=== PATIENT | female | born 1940 | race Hispanic/Latino ===

== ENCOUNTER 2018-05-01 06:32 | Day surgery (SDC) | payer MEDICARE ==
[2018-04-27 10:45] VITALS: BMI 34.9
[2018-05-01] MEDS ORDERED: Lidocaine 2% Inj (20ml) ONE (07:10)
[2018-05-01] MEDS ORDERED: Iodixanol 320 MG/ML 100 ML BOTTLE IV ONE (07:11)
[2018-05-01] MEDS ORDERED: Iohexol 350mgl/ml 50 ML ONE (07:11)
[2018-05-01] MEDS ORDERED: Iodixanol 320 MG/ML 200 ML BOTTLE IV ONE (07:11)
[2018-05-01] MEDS ORDERED: Nitroglycerin 50mg in D5W 0 MG/0 ML BOTTLE IV ONE (07:11)
[2018-05-01 07:57] LABS: PARTIAL THROMBOPLASTIN TIME 33.2 Seconds (25.1-36.5); PROTHROMBIN TIME 11.5 SECONDS (9.4-12.5)
[2018-05-01] MEDS ORDERED: Midazolam 2 MG/2 ML VIAL ONE ×2 (08:35→08:42)
[2018-05-01 08:37] LABS: CALCIUM 9.3 mg/dL (8.4-10.5); GFR AFRICAN-AMERICAN > 60; GFR NON-AFRICAN AMERICAN > 60
[2018-05-01 08:40] LABS: BLOOD UREA NITROGEN 20 mg/dL (7-21)
--- NOTE | 2018-05-01 08:41 | CARD ---
APPROVED REPORT EKG Measurement Heart [id number] <Conclusion> Atrial fibrillation Left axis deviation IVCD PRWP Possible septal MD, old Moderate voltage criteria for LVH STTW changes c/w ischemia Prolonged QTc
[2018-05-01] MEDS ORDERED: Digoxin 500 mcg/2ml (0.5 mg/2ml) Inj ONE (08:45)
[2018-05-01] MEDS ORDERED: Sodium Chloride 0.9% 1,000 ML IV SCH (09:15)
[2018-05-01 09:37] VITALS: TEMP 97.9
[2018-05-01 09:55] VITALS: PULSE 120
[2018-05-01 09:57] LABS: BASO # 0.01 K/mm3 (0.0-2.0); BASO % 0.2 % (0.0-3.0); EOS # 0.1 (0.0-0.7); EOS % 1.4 % (1.5-5.0); GRAN # 2.73 (1.4-6.5); HEMOGLOBIN 11.1 g/dL (12.0-16.0); LYMPH # 1.3 (1.2-3.4); LYMPH % 29.8 % (22.0-35.0); MEAN CELL VOLUME 93.7 fl (80.0-105.0); MEAN CORPUSCULAR HEMOGLOBIN 31.9 pg (25.0-35.0); MONO # 0.3 (0.1-0.6); MONO % 6.6 % (1.0-6.0); RBC 3.48 10^6/uL (3.5-6.1); RED CELL DISTRIBUTION WIDTH 14.6 % (11.5-14.5); WHITE BLOOD COUNT 4.4 10^3/ul (4.5-11.0)
[2018-05-01 11:09] VITALS: RESP 20; O2SAT 100
[2018-05-01 14:09] VITALS: BP 117/45; PULSE 62
--- NOTE | 2018-05-10 15:41 | CARDCATH ---
PROCEDURE DATE: 05/01/2018 HISTORY: The patient is a 77-year-old woman with history of chest pain. Her past medical history includes a history of atrial fibrillation as well as diabetes mellitus. The patient underwent stress testing which showed new ischemic changes in the anterolateral and inferolateral wall. The overall ejection fraction was normal. Because of this, cardiac catheterization was recommended. PROCEDURE: Left heart catheterization with coronary arteriography and left ventriculogram. The right femoral artery was cannulated with a 6-Yemeni sheath. There were no complications. I performed moderate sedation which included the presence of an independent trained observer that assisted in monitoring the patient's level of consciousness and physiologic status. After administration of Versed and fentanyl, my intra-service time was 15 minutes. The findings on catheterization revealed a right dominant circulation. The RCA revealed diffuse atherosclerosis without critical lesions. The distal posterolateral branches revealed 50%-60% lesions in a small distal branch. The left main artery was unremarkable. The LAD and diagonal vessels revealed intimal irregularities without critical lesions. The circumflex artery revealed intimal irregularities with a 50%-60% stenoses in the midportion of the circumflex artery just after the takeoff of the first obtuse marginal branch. Left ventriculogram was performed in the DELUNA projection. In the DELUNA projection, wall motion is within normal limits. Estimated ejection fraction of 60%. Angio-Seal was used to close the femoral artery site. The patient tolerated the procedure well. In summary, the procedure revealed normal LV function. A 50%-60% stenosis in the mid circumflex artery. A 60% stenosis in the distal portion of the posterolateral branch of the RCA. Given these findings, the treatment will be continued medical therapy with emphasis on a strict cardiac risk reduction program. David Washburn MD
== END 2018-05-01 15:10 | disposition home or self-care (01) ==
LOC: CATH 06:32
PROVIDERS: ATTEND Internal Medicine Cardiovascular Disease
DX: I25.10 Atherosclerotic heart disease of native coronary artery without angina pectoris (principal); I48.91 Unspecified atrial fibrillation; E11.9 Type 2 diabetes mellitus without complications; E66.9 Obesity, unspecified; I10 Essential (primary) hypertension
CPT/HCPCS: 36415; 80048; 85025; 85610; 85730; 86850; 86900; 93005; 93458; 99152; C1760; C1769; C2629; J1160; J1644; J2250; J3010; J7030; J7040; Q9966; Q9967 ×2

== ENCOUNTER 2018-07-10 17:34 | Inpatient (IN) | payer MEDICARE ==
[2018-07-10 19:23] LABS: BASO # 0.02 K/mm3 (0.0-2.0); BASO % 0.2 % (0.0-3.0); EOS # 0.1 (0.0-0.7); GRAN # 7.5 (1.4-6.5); GRAN % 73.4 % (50.0-68.0); HEMOGLOBIN 11.5 g/dL (12.0-16.0); LYMPH % 19.2 % (22.0-35.0); MEAN CELL VOLUME 96.4 fl (80.0-105.0); MEAN CORPUSCULAR HEMOGLOBIN 31.8 pg (25.0-35.0); MEAN PLATELET VOLUME 9.6 fl (7.0-11.0); MONO # 0.6 (0.1-0.6); MONO % 6.2 % (1.0-6.0); RBC 3.62 10^6/uL (3.5-6.1); RED CELL DISTRIBUTION WIDTH 14.6 % (11.5-14.5); WHITE BLOOD COUNT 10.2 10^3/ul (4.5-11.0)
[2018-07-10 19:33] LABS: ALB/GLOB RATIO 1.5 (1.1-1.8); ALBUMIN 4.1 g/dL (3.0-4.8); ALT/SGPT 17 U/L (7-56); AST/SGOT 21 U/L (14-36); BLOOD UREA NITROGEN 19 mg/dL (7-21); CALCIUM 9.1 mg/dL (8.4-10.5); GFR NON-AFRICAN AMERICAN > 60
[2018-07-10 19:45] LABS: B-TYPE NATRIURETIC PEPTIDE 2140 pg/mL (0-450); TROPONIN I 0.02 ng/mL; URINE BILIRUBIN NEGATIVE (NEGATIVE); URINE BLOOD TRACE-INTACT (NEGATIVE); URINE GLUCOSE (UA) NEGATIVE (NEGATIVE); URINE LEUKOCYTE ESTERASE SMALL Leu/uL (NEGATIVE); URINE PROTEIN NEGATIVE mg/dL (<30 mg/dL); URINE UROBILINOGEN 0.2 E.U./dL (<1 E.U./dL)
[2018-07-10 19:54] LABS: URINE APPEARANCE SLIGHT-CLOUDY (CLEAR); URINE COLOR YELLOW (YELLOW)
[2018-07-10 20:24] LABS: URINE EPITHELIAL CELLS 0 - 2 /hpf (0-5); URINE RBC 0 - 2 /hpf (0-2)
--- NOTE | 2018-07-10 23:27 | ED PDOC ---
Arrival/HPI - General Chief Complaint: Dizziness/Lightheaded Time Seen by Provider: 07/10/18 17:47 Historian: Patient - History of Present Illness Narrative History of Present Illness (Text): 07/10/18 23:15 77yr old female presents today complaining of dizziness and feeling strange for the past week. Patient denies chest pain or shortness of breath. She denies fevers or chills. Patient states her whole body just feels strange. Patient states she has a history is atrial fibrillation. States occasionally she feels like her heart is racing. Denies headache. Denies numbness or tingling in the extremities. Past Medical History - Provider Review Nursing Documentation Reviewed: Yes - Travel History Have you recently traveled outside [place] w/in the past 3 mons?: No - Infectious Disease Hx of Infectious Diseases: None - Tetanus Immunization Tetanus Immunization: Unknown - Cardiac Hx Atrial Fibrillation: Yes Hx Cardiac Arrhythmia: Yes Hx Hypertension: Yes Hx Pacemaker: No Other/Comment: h/o cardiac cath - Pulmonary Hx Respiratory Disorders: No Hx Asthma: No Hx Bronchitis: No Hx Chronic Obstructive Pulmonary Disease (COPD): No Hx Emphysema: No Hx Pneumonia: No Hx Respiratory Aspiration: No Hx Respiratory Tract Infection: No Hx Sleep Apnea: No Hx Tuberculosis: No - Neurological Hx Paralysis: No - HEENT Hx HEENT Disorder: No Hx Blind: No Hx Cataracts: No Hx Deafness: No Hx Difficulty Chewing: No Hx Epistaxis: No Hx Glaucoma: No Hx Macular Degeneration: No - Renal Hx Renal Disorder: No Hx Dialysis: No Hx Kidney Stones: No Hx Neurogenic Bladder: No Hx Pyelonephritis: No Hx Renal Cancer: No Hx Renal Failure: No - Endocrine/Metabolic Hx Endocrine Disorders: No Hx Adrenal Cancer: No Hx Diabetes Insipidus: No Hx Diabetes Mellitus Type 1: No Hx Diabetes Mellitus Type 2: Yes Hx Hyperthyroidism: No Hx Hypothyroidism: No Hx Systemic Lupus Erythematosus: No - Hematological/Oncological Hx Blood Transfusions: No - Integumentary Hx Dermatological Disorder: No Hx Basal Cell Carcinoma: No Hx Eczema: No Hx Melanoma: No Hx Psoriasis: No Hx Squamous Cell Carcinoma: No - Musculoskeletal/Rheumatological Hx Musculoskeletal Disorders: Yes - Gastrointestinal Hx Gastrointestinal Disorders: No Hx Colostomy: No Hx Crohn's Disease: No Hx Diverticulitis: No Hx Gall Bladder Disease: No Hx Gastroesophageal Reflux: No Hx Gastrointestinal Ulcer: No Hx Ileostomy: No Hx Liver Failure: No Hx Pancreatitis: No HX Swallowing Problems: No - Genitourinary/Gynecological Hx Genitourinary Disorders: No Hx Hematuria: No Hx Incontinence: No Hx Prostate Problems: No Hx Sexually Transmitted Diseases: No Hx Urinary Tract Infection: No - Psychiatric Hx Emotional Abuse: No Hx Physical Abuse: No Hx Substance Use: No - Past Surgical History Past Surgical History: No Previous - Surgical History Other/Comment: cardiac cath - no stents - Anesthesia Hx Anesthesia: Yes Hx Anesthesia Reactions: No Hx Malignant Hyperthermia: No - Suicidal Assessment Feels Threatened In Home Enviroment: No Family/Social History - Physician Review Nursing Documentation Reviewed: Yes Family/Social History: Unknown Family HX Smoking Status: Never Smoked Hx Alcohol Use: Yes (OCCASSIONAL WINE WITH DINNER) Hx Substance Use: No Hx Substance Use Treatment: No Allergies/Home Meds Allergies/Adverse Reactions: Allergies No Known Allergies Allergy (Verified 11/28/14 12:36) Home Medications: Home Meds Medication Instructions Recorded Confirmed Clonazepam 0.5 mg PO BID 11/12/14 07/10/18 Metformin HCl 1,000 mg PO BID 11/12/14 07/10/18 Sotalol [Sorine] 80 mg PO BID 11/21/14 07/10/18 Allopurinol [Zyloprim] 300 mg PO DAILY 04/27/18 07/10/18 Apixaban [Eliquis] 2.5 mg PO BID 05/01/18 07/10/18 Aspirin [Adult Aspirin] 81 mg PO DAILY 05/01/18 07/10/18 Atorvastatin [Lipitor] 1 tab PO HS 07/10/18 07/10/18 Timolol Maleate [Istalol] 1 drop BOTHEYES BID 07/10/18 07/10/18 Review of Systems - Review of Systems Constitutional: absent: Fatigue, Fevers Respiratory: absent: SOB, Cough Cardiovascular: Palpitations Gastrointestinal: absent: Abdominal Pain, Nausea, Vomiting Genitourinary Female: absent: Dysuria, Frequency, Hematuria Musculoskeletal: absent: Arthralgias, Back Pain, Neck Pain Skin: absent: Rash, Pruritis Neurological: absent: Headache, Dizziness Psychiatric: absent: Anxiety, Depression, Suicidal Ideation Physical Exam Vital Signs Reviewed: Yes Vital Signs Temp Pulse Resp BP Pulse Ox 07/10/18 22:23 135 H 149/85 07/10/18 22:07 125 H 18 124/86 99 07/10/18 19:50 88 18 140/83 98 07/10/18 18:55 88 17 122/76 98 07/10/18 18:50 120 H 150/86 07/10/18 18:40 111 H 18 147/96 H 100 07/10/18 17:59 97.8 F 18 130/89 98 Temperature: Afebrile Blood Pressure: Normal Pulse: Tachycardic Respiratory Rate: Normal Appearance: Positive for: Well-Appearing, Non-Toxic, Comfortable Pain Distress: None Mental Status: Positive for: Alert and Oriented X 3 Finger Stick Blood Glucose: 84 - Systems Exam Head: Present: Atraumatic Mouth: Present: Moist Mucous Membranes Neck: Present: Normal Range of Motion Respiratory/Chest: Present: Good Air Exchange, Rales (slight rales at the bases bilaterally). No: Clear to Auscultation, Respiratory Distress, Accessory Muscle Use Cardiovascular: Present: Irregular Rhythm, Peripheal Pulses Present, Tachycardic. No: Murmurs Abdomen: Present: Hernias. No: Tenderness, Distention, Rebound, Guarding Back: Present: Normal Inspection Upper Extremity: Present: Normal ROM Lower Extremity: No: Edema Neurological: Present: GCS=15, Speech Normal Skin: Present: Warm, Dry, Normal Color. No: Rashes Psychiatric: Present: Alert, Oriented x 3 Medical Decision Making ED Course and Treatment: 07/10/18 77yr old female with hx of afib on eliquis presents today with dizziness and fatigue and palpitations. EKG rapid A. fib at 137 bpm left axis deviation and complete left bundle branch block no ST elevations pt found to be in rapid afib @137b/m pt seen and evaluated by dr. robertson; cbc; wnl cmp;wnl Cardizem 10 mg IV given Patient reassessment heart rate improved to 88 gradually began to increase time emergency room stay and additional 15 mg of Cardizem IV were given With initial improvement of the heart rate into the 90s and then gradually increase into the 126 range. pt found to have CHF: with BNP of 2140. pt given laxis 40mg IVP Case was discussed in depth with Dr. Hopkins who advised admit to the ICU a Cardizem drip. Case was discussed with ; who accepts admission. and will see patient at bedside. impression; rapid afib, CHF admit to ICU - Lab Interpretations Lab Results: 07/10/18 19:15 07/10/18 19:15 Lab Results 07/10/18 19:15: WBC 10.2 D, RBC 3.62, Hgb 11.5 L, Hct 34.9 L, MCV 96.4, MCH 31.8, MCHC 33.0, RDW 14.6 H, Plt Count 251, MPV 9.6, Gran % 73.4 H, Lymph % ( Auto) 19.2 L, [place] % (Auto) 6.2 H, Eos % (Auto) 1.0 L, Baso % (Auto) 0.2, Gran # 7.50 H, Lymph # (Auto) 2.0, [place] # (Auto) 0.6, Eos # (Auto) 0.1, Baso # (Auto ) 0.02 07/10/18 19:15: Sodium 140, Potassium 3.7, Chloride 108 H, Carbon Dioxide 21, Anion Gap 15, BUN 19, Creatinine 0.8, Est GFR ( Amer) > 60, Est GFR (Non- Af Amer) > 60, Random Glucose 94, Calcium 9.1, Total Bilirubin 0.5, AST 21, ALT 17, Alkaline Phosphatase 73, Lactate Dehydrogenase 477, Total Creatine Kinase 49 , Troponin I 0.02 D, NT-Pro-B Natriuret Pep 2140 H, Total Protein 6.8, Albumin 4.1, Globulin 2.7, Albumin/Globulin Ratio 1.5 07/10/18 19:15: Urine Color Yellow, Urine Appearance Slight-cloudy, Urine pH 6.0 , Ur Specific [place] 1.015, Urine Protein Negative, Urine Glucose (UA) Negative , Urine Ketones Negative, Urine Blood Trace-intact H, Urine Nitrate Negative, Urine Bilirubin Negative, Urine Urobilinogen 0.2, Ur Leukocyte Esterase Small H , Urine RBC 0 - 2, Urine WBC 2 - 5, Ur Epithelial Cells 0 - 2 07/10/18 18:46: POC Glucose (mg/dL) 84 - RAD Interpretation Radiology Orders: 07/10/18 18:40 HEAD W/O CONTRAST [CT] Stat CHEST PORTABLE [RAD] Stat - Medication Orders Current Medication Orders: diltiaZEM IVPB 100mg in NS (Cardizem 100mg In Ns) 100 mls @ 5 mls/hr IV .Q20H PRN; Protocol; 5 MG/HR PRN Reason: TITRATE PER MD ORDER Discontinued Medications Aspirin (Aspirin Chewable) 324 mg PO STAT STA Stop: 07/10/18 21:07 Last Admin: 07/10/18 22:24 Dose: 324 mg Diltiazem HCl (Cardizem) 10 mg IVP STAT STA Stop: 07/10/18 18:40 Last Admin: 07/10/18 18:50 Dose: 10 mg IVP Administration Document 07/10/18 18:50 SF (Rec: 07/10/18 18:54 SF [email or web address]) Charges for Administration # of IVP Administrations 1 MAR Pulse and Blood Pressure Document 07/10/18 18:50 SF (Rec: 07/10/18 18:54 SF [email or web address]) Pulse Pulse Rate (60-90 beats/min) 120 Blood Pressure Blood Pressure (100/60-150/90 mm Hg) 150/86 Diltiazem HCl (Cardizem) 15 mg IVP STAT STA Stop: 07/10/18 21:43 Last Admin: 07/10/18 22:23 Dose: 15 mg IVP Administration Document 07/10/18 22:23 RG (Rec: 07/10/18 22:24 [email or web address]) Charges for Administration # of IVP Administrations 1 MAR Pulse and Blood Pressure Document 07/10/18 22:23 RG (Rec: 07/10/18 22:24 [email or web address]) Pulse Pulse Rate (60-90 beats/min) 135 Blood Pressure Blood Pressure (100/60-150/90 mm Hg) 149/85 Furosemide (Lasix) 40 mg IVP STAT STA Stop: 07/10/18 21:41 Last Admin: 07/10/18 22:22 Dose: 40 mg MAR Blood Pressure Document 07/10/18 22:22 RG (Rec: 07/10/18 22:23 [email or web address]) Blood Pressure Blood Pressure (100/60-150/90 mm Hg) 149/85 IVP Administration Document 07/10/18 22:22 RG (Rec: 07/10/18 22:23 [email or web address]) Charges for Administration # of IVP Administrations 1 Disposition/Present on Arrival - Present on Arrival Any Indicators Present on Arrival: No History of DVT/PE: No History of Uncontrolled Diabetes: No Urinary Catheter: No History of Decub. Ulcer: No History Surgical Site Infection Following: None - Disposition Have Diagnosis and Disposition been Completed?: Yes Diagnosis: Atrial fibrillation with rapid ventricular response, CHF (congestive heart failure) Disposition: HOSPITALIZED Disposition Time: 21:00 Patient Plan: Admission Condition: FAIR
[2018-07-11 00:16] LABS: INR 1.16; PROTHROMBIN TIME 13.3 SECONDS (9.4-12.5)
[2018-07-11 00:20] LABS: PARTIAL THROMBOPLASTIN TIME 26.7 Seconds (25.1-36.5)
[2018-07-11] MEDS: diltiaZEM IVPB 100mg in NS 100 ML IV PRN ×2 (01:56→10:21)
--- NOTE | 2018-07-11 05:04 | CP.PCM.CON ---
<Reilly Garza - Last Filed: 07/11/18 06:05> History of Present Illness - History of Present Illness History of Present Illness: Reilly Garza DO PGY-1, ICU Consult note for Dr. Rodriguez CC: lightheadedness, fast heart rate This is a 77 year old female with PMH of Afib (on eliquis), HTN, CHF, DM2, Arthritis who presented to the ED wit a 1 week history of intermittent lightheadedness and fast heart rate. Pt describes the lightheadedness as a feeling like she was going to pass out, requiring her to sit down. She states that it lasts a few minutes, and comes and goes without inciting or alleviating factors. Pt describes her fast heart rate as her usual atrial fibrillation sypmtoms, but states that it is amplified by her feeling of nervousness and anxiety. Pt denies weakness, dizziness, paresthesias, fever, chest pain, abdominal pain, n/v/d, urinary complaints, LOC, fall. A 12-point ROS was reviewed and is otherwise unremarkable. EKG showed Afib with RVR at 132. ICU was consulted due to Afib with RVR in the ED, refractory to Cardizem 10 mg IVP and 15 mg IVP. Pt was started on a cardizem gtt in the ED. PMD: Dr. Hopkins Electric Vehicle Electrician: Dr. Washburn PMH: PMH of Afib diagnosed 3 years ago(on eliquis/sotalol), HTN, CHF, DM2, Arthritis. Pt had an stress test in March which was normal. Pt had a cardiac catheterization on 05/01/18, which showed 50-60% stenosis of mid circumflex artery , 60% stenosis distal of posterolateral branch of RCA; LVEF 60%. Echocardiogram done on 04/10 showed mild LVH. AV calfication. Dilated LA. Mild TR. Mild pulmonary hypertension. RV is normal size. Meds: See MAR; pt reports starting Lipitor 10 mg PO QD and Eliquis 2.5 mg PO BID 2 months ago. Allx: NKDA Social Hx: (-) smoking, (+) occasional etoh, (-) illicit drug use. Review of Systems - Review of Systems All systems: reviewed and no additional remarkable complaints except (as per HPI ) Past Patient History - Infectious Disease Hx of Infectious Diseases: None - Tetanus Immunizations Tetanus Immunization: Unknown - Past Social History Smoking Status: Never Smoked - CARDIAC Hx Atrial Fibrillation: Yes Hx Cardia Arrhythmia: Yes Hx Hypertension: Yes Hx Pacemaker: No Other/Comment: h/o cardiac cath - PULMONARY Hx Respiratory Disorders: No Hx Asthma: No Hx Bronchitis: No Hx Chronic Obstructive Pulmonary Disease (COPD): No Hx Emphysema: No Hx Pneumonia: No Hx Respiratory Aspiration: No Hx Respiratory Tract Infection: No Hx Sleep Apnea: No Hx Tuberculosis: No - NEUROLOGICAL Hx Paralysis: No - HEENT Hx HEENT Problems: No Hx Blind: No Hx Cataracts: No Hx Deafness: No Hx Difficulty Chewing: No Hx Epistaxis: No Hx Glaucoma: No Hx Macular Degeneration: No - RENAL Hx Chronic Kidney Disease: No Hx Dialysis: No Hx Kidney Stones: No Hx Neurogenic Bladder: No Hx Pyelonephritis: No Hx Renal (Kidney) Cancer: No Hx Renal Failure: No - ENDOCRINE/METABOLIC Hx Endocrine Disorders: No Hx Adrenal Cancer: No Hx Diabetes Insipidus: No Hx Diabetes Mellitus Type 1: No Hx Diabetes Mellitus Type 2: Yes Hx Hyperthyroidism: No Hx Hypothyroidism: No Hx Systemic Lupus Erythematosus: No - HEMATOLOGICAL/ONCOLOGICAL Hx Blood Transfusions: No - INTEGUMENTARY Hx Dermatological Problems: No Hx Basil Cell: No Hx Eczema: No Hx Melanoma: No Hx Psoriasis: No Hx Squamous Cell: No - MUSCULOSKELETAL/RHEUMATOLOGICAL Hx Musculoskeletal Disorders: Yes - GASTROINTESTINAL Hx Gastrointestinal Disorders: No Hx Colostomy: No Hx Crohn's Disease: No Hx Diverticulitis: No Hx Gall Bladder Disease: No Hx Gastroesophageal Reflux: No Hx Ileostomy: No Hx Liver Failure: No Hx Pancreatitis: No HX Swallowing Problems: No - GENITOURINARY/GYNECOLOGICAL Hx Genitourinary Disorders: No Hx Hematuria: No Hx Incontinence: No Hx Sexually Transmitted Disorders: No Hx Urinary Tract Infection: No - PSYCHIATRIC Hx Emotional Abuse: No Hx Physical Abuse: No Hx Substance Use: No - SURGICAL HISTORY Other/Comment: cardiac cath - no stents - ANESTHESIA Hx Anesthesia: Yes Hx Anesthesia Reactions: No Hx Malignant Hyperthermia: No Meds Allergies/Adverse Reactions: Allergies Allergy/AdvReac Type Severity Reaction Status Date / Time No Known Allergies Allergy Verified 11/28/14 12:36 - Medications Medications: Current Medications Allopurinol (Zyloprim) 300 mg PO DAILY CAR Apixaban (Eliquis) 2.5 mg PO BID CAR PRN Reason: Protocol Aspirin (Ecotrin) 81 mg PO DAILY CAR Atorvastatin Calcium (Lipitor) 10 mg PO HS CAR Famotidine (Pepcid) 10 mg PO 1000,2200 CAR diltiaZEM IVPB 100mg in NS (Cardizem 100mg In Ns) 100 mls @ 5 mls/hr IV .Q20H PRN; Protocol; 5 MG/HR PRN Reason: TITRATE PER MD ORDER Last Titration: 07/11/18 02:12 Dose: 10 mg/hr, 10 mls/hr Lisinopril (Zestril) 20 mg PO DAILY [facility] Metformin HCl (Glucophage) 1,000 mg PO BID [facility] Non-Formulary Medication (Timolol Maleate [Istalol]) 1 drop BOTHEYES BID [facility] Pioglitazone HCl (Actos) 45 mg PO DAILY CAR Physical Exam - Constitutional Appears: Well, Non-toxic, No Acute Distress - Head Exam Head Exam: ATRAUMATIC, NORMAL INSPECTION - Eye Exam Eye Exam: EOMI, PERRL - ENT Exam ENT Exam: Mucous Membranes Moist - Neck Exam Neck exam: Positive for: Normal Inspection - Respiratory Exam Respiratory Exam: Clear to Auscultation Bilateral, NORMAL BREATHING PATTERN. absent: Rales, Rhonchi, Wheezes, Respiratory Distress, Stridor - Cardiovascular Exam Cardiovascular Exam: Tachycardia, Irregular Rhythm Additional comments: (+) 3+ bilateral radial pulses - GI/Abdominal Exam GI & Abdominal Exam: Normal Bowel Sounds, Soft. absent: Hernia, Organomegaly, Tenderness - Extremities Exam Extremities exam: Positive for: normal inspection, pedal pulses present (3+ bilateral DPs). Negative for: calf tenderness, pedal edema Additional comments: (+) compression stockings - Back Exam Back exam: NORMAL INSPECTION - Neurological Exam Neurological exam: Alert, Oriented x3 - Psychiatric Exam Psychiatric exam: Normal Affect, Normal Mood - Skin Skin Exam: Dry, Normal Color, Warm Results - Vital Signs Recent Vital Signs: Last Vital Signs Temp 97.8 F 07/11/18 02:15 Pulse 102 H 07/11/18 02:58 Resp 18 07/11/18 02:58 BP 130/73 07/11/18 02:58 Pulse Ox 97 07/11/18 02:58 - Labs Result Diagrams: 07/10/18 19:15 07/10/18 19:15 Labs: Laboratory Results - last 24 hr 07/10/18 22:47 PT 13.3 H INR 1.16 APTT 26.7 Assessment & Plan - Assessment and Plan (Free Text) Assessment: This is a 77 year old female with PMH of Afib (on eliquis), HTN, CHF, DM2, Arthritis who presented to the ED wit a 1 week history of intermittent lightheadedness and fast heart rate. EKG showed Afib with RVR at 132. CXR showed increased vascular congestion, cardiomegaly; as read by me. ICU was consulted due to Afib with RVR in the ED, refractory to Cardizem IV pushes. Pt was started on a cardizem gtt in the ED. Plan: Neuro: - head ct shows no acute intracranial pathology - pt is AAOx3 - monitor for mental status changes Cardio: - EKG shows Afib at 132 with RVR - cardizem gtt for afib with rvr - maintain MAP>65mmHg - BNP is 2140 - continue home ASA, Atovastain, Lasix, Lisinopril - CHADVASC score is 4; continue eliquis as prescribed - cardiology consulted, recs appreciated Pulm: - maintain spo2>95% - CXR shows vascular congestion, cardiomegaly; as read by me GI: - pepcid for GI ppx - HHD Renal: - replete electrolytes as needed - maintain euvolemia Endo: - continue home Metformin, Actos - accucheck ACHS Heme: - H/H is stable - hgb is 11.5; baseline is 11.0 ID: - no leukocytosis; pt afebrile PPX: - pepcid for GI, Heparin/SCDs for dvt Case was reviewed and discussed with attending physician, Dr. Rodriguez <Bunny Rodriguez - Last Filed: 07/11/18 06:52> Meds - Medications Medications: Current Medications Allopurinol (Zyloprim) 300 mg PO DAILY CAR Apixaban (Eliquis) 2.5 mg PO BID CAR PRN Reason: Protocol Aspirin (Ecotrin) 81 mg PO DAILY CAR Atorvastatin Calcium (Lipitor) 10 mg PO HS CAR Famotidine (Pepcid) 10 mg PO 1000,2200 CAR Heparin Sodium (Porcine) (Heparin) 5,000 units SC Q12 CAR PRN Reason: Protocol diltiaZEM IVPB 100mg in NS (Cardizem 100mg In Ns) 100 mls @ 5 mls/hr IV .Q20H PRN; Protocol; 5 MG/HR PRN Reason: TITRATE PER MD ORDER Last Titration: 07/11/18 02:12 Dose: 10 mg/hr, 10 mls/hr Lisinopril (Zestril) 20 mg PO DAILY [facility] Metformin HCl (Glucophage) 1,000 mg PO BID [facility] Non-Formulary Medication (Timolol Maleate [Istalol]) 1 drop BOTHEYES BID CAR Pioglitazone HCl (Actos) 45 mg PO DAILY CAR Results - Vital Signs Recent Vital Signs: Last Vital Signs Temp 98.8 F 07/11/18 04:24 Pulse 78 07/11/18 06:00 Resp 18 07/11/18 05:00 BP 122/57 L 07/11/18 05:00 Pulse Ox 97 07/11/18 05:00 - Labs Result Diagrams: 07/10/18 19:15 07/10/18 19:15 Labs: Laboratory Results - last 24 hr 07/10/18 22:47 PT 13.3 H INR 1.16 APTT 26.7 Attending/Attestation - Attestation I have personally seen and examined this patient.: Yes I have fully participated in the care of the patient.: Yes I have reviewed all pertinent clinical information: Yes
[2018-07-11 06:37] VITALS: BMI 33.1
[2018-07-11 07:04] LABS: BASO # 0.01 K/mm3 (0.0-2.0); BASO % 0.1 % (0.0-3.0); EOS % 0.3 % (1.5-5.0); GRAN # 8.03 (1.4-6.5); GRAN % 76.4 % (50.0-68.0); HEMOGLOBIN 12.4 g/dL (12.0-16.0); LYMPH # 1.8 (1.2-3.4); LYMPH % 16.9 % (22.0-35.0); MEAN CELL VOLUME 96.2 fl (80.0-105.0); MEAN CORPUSCULAR HEMOGLOBIN 31.8 pg (25.0-35.0); MEAN CORPUSCULAR HGB CONC 33.1 g/dl (31.0-37.0); MEAN PLATELET VOLUME 9.8 fl (7.0-11.0); MONO # 0.7 (0.1-0.6); MONO % 6.3 % (1.0-6.0); RBC 3.9 10^6/uL (3.5-6.1); RED CELL DISTRIBUTION WIDTH 14.7 % (11.5-14.5); WHITE BLOOD COUNT 10.5 10^3/ul (4.5-11.0)
[2018-07-11 07:38] LABS: ALB/GLOB RATIO 1.5 (1.1-1.8); ALBUMIN 4.2 g/dL (3.0-4.8); ALT/SGPT 22 U/L (7-56); AST/SGOT 27 U/L (14-36); BLOOD UREA NITROGEN 18 mg/dL (7-21); CALCIUM 9.4 mg/dL (8.4-10.5); GFR NON-AFRICAN AMERICAN 54
--- NOTE | 2018-07-11 08:38 | CT ---
Date of service: 07/10/2018 PROCEDURE: CT HEAD WITHOUT CONTRAST. HISTORY: dizziness COMPARISON: None available. TECHNIQUE: Axial computed tomography images were obtained through the head/brain without intravenous contrast. Radiation dose: Total exam DLP = 993.18 mGy-cm. This CT exam was performed using one or more of the following dose reduction techniques: Automated exposure control, adjustment of the mA and/or kV according to patient size, and/or use of iterative reconstruction technique. FINDINGS: HEMORRHAGE: No intracranial hemorrhage. BRAIN: No mass effect or edema. Mild chronic periventricular white matter ischemic change. No significant atrophy. No evidence of acute infarct. VENTRICLES: Unremarkable. No hydrocephalus. CALVARIUM: Unremarkable. PARANASAL SINUSES: Unremarkable as visualized. No significant inflammatory changes. MASTOID AIR CELLS: Unremarkable as visualized. No inflammatory changes. OTHER FINDINGS: None. IMPRESSION: No intracranial mass, hemorrhage or evidence of acute infarct. The preliminary findings for this examination were reported by [facility] at 8 p.m. on 07/10/2018. There is concurrence of this report with the preliminary findings.
[2018-07-11] MEDS ORDERED: Magnesium Sulfate 2 gm/50 ml 2 GM/50 ML BAG IVPB ONE (09:22)
--- NOTE | 2018-07-11 09:25 | RAD ---
Date of service: 07/10/2018 HISTORY: rapid afib COMPARISON: 11/12/2014 FINDINGS: LUNGS: No active pulmonary disease. PLEURA: No significant pleural effusion identified, no pneumothorax apparent. CARDIOVASCULAR: Moderate cardiomegaly OSSEOUS STRUCTURES: No significant abnormalities. VISUALIZED UPPER ABDOMEN: Normal. OTHER FINDINGS: None. IMPRESSION: No active disease.
--- NOTE | 2018-07-11 09:36 | RAD ---
Date of service: 07/11/2018 HISTORY: chf COMPARISON: 07/10/2018 FINDINGS: LUNGS: No active pulmonary disease. PLEURA: No significant pleural effusion identified, no pneumothorax apparent. CARDIOVASCULAR: Mild cardiomegaly OSSEOUS STRUCTURES: No significant abnormalities. VISUALIZED UPPER ABDOMEN: Normal. OTHER FINDINGS: None. IMPRESSION: No active disease.
--- NOTE | 2018-07-11 10:10 | HP ---
HISTORY OF PRESENT ILLNESS: She came yesterday not feeling well. She complains of dizziness. Feeling strange for the past week. No real chest pain or shortness of breath. Just not herself. Whole body feels strange. It turns that she is in rapid atrial fibrillation. She also felt like the heart was racing at every now and then. PAST MEDICAL HISTORY: She has a past medical history of cardiac arrhythmia, hypertension, cardiac cath in the past. She has history of AFib. She has diabetes, cardiac cath with no stents. She knows Dr. Washburn, the take out waiter. FAMILY HISTORY: Hypertension in the family. SOCIAL HISTORY: Never smoked. Occasional wine with dinner. No substance abuse. ALLERGIES: NO KNOWN DRUG ALLERGIES. MEDICATIONS: She has some clonazepam for anxiety, metoprolol for diabetes, Sotalol, Zyloprim for gout, Eliquis, aspirin, Lipitor and eye drops, Timolol. REVIEW OF SYSTEMS: No fatigue. No fevers. No shortness of breath or cough. There were palpitations. Just not feeling 100%, not sure why. No abdominal pain, nausea, vomiting, constipation, diarrhea. No problems urinating. No arthralgias, back pain or neck pain. Skin that she could tell is intact. No itching or rashes. No headache or dizziness. No anxiety or depression. No suicidal ideation. PHYSICAL EXAMINATION: VITAL SIGNS: She has a 97.8 temp, pulse as high as 135, respiratory rate is 18, 130/89 blood pressure, 147/96 blood pressure, a 98% O2 sat. GENERAL: She is seen in the Intensive Care Unit on a [facility] drip. Well appearing, nontoxic, comfortable at this time, may be a little bit better with the heart rate at least in the 90s. Alert and oriented x3. Sugar was 84. HEENT: Head is atraumatic, normocephalic. Mucous membranes are moist. NECK: Supple. Good range of motion. HEART: Irregular rate. LUNGS: Decreased breath sounds, but clear to auscultation. They auscultated rales in the bases bilaterally in the ER, I do not hear that. ABDOMEN: Soft, nontender. Positive bowel sounds. No guarding, no rebound, no CVA tenderness. EXTREMITIES: Have no edema. NEUROLOGIC: GCS is 15. Cranial nerves II through XII grossly intact. Alert and oriented x3. SKIN: Warm and dry. LYMPHATICS: Thyroid midline. No palpable appreciable lymphadenopathy. LABORATORY DATA: She had a couple of tests done. She was put on a Cardizem drip. She has a 10.5 white count, 12.4 hemoglobin, 37.5 hematocrit with a 270 platelets. INR is 1.16. She has a 140 sodium, potassium 3.7, BUN 18, creatinine 1, GFR is 54, sugar is 136, calcium is 9.4, phosphorous is 3.9, magnesium 1.4, total bili is 0.7, AST is 27, ALT is 22, alk phos 80. Troponin I is 0.02, but BNP is high at 2140. She will be on IV Lasix. Total protein 7.1. Urine with small leukocytes. IMPRESSION: She is on a Cardizem drip. She is on Ecotrin, Eliquis, Klonopin, Lasix IV, Lipitor, magnesium replacement, Pepcid, Zestril, Zyloprim and Timolol. We will see what Cardiology has to say. Chest x-ray was clear. Continue aggressive treatment and care on new onset rapid atrial fibrillation, on diabetes, hypertension, congestive heart failure. Jose Alberto Hopkins DO
[2018-07-11] MEDS: Insulin Reg-LOW-Coverage SC SCH ×2 (11:32→17:54)
--- NOTE | 2018-07-11 13:32 | CP.CCUPN ---
<AidanEduard - Last Filed: 07/11/18 13:29> CCU Subjective - Physician Review Subjective (Free Text): Eduard Bermudez DO PGY1 Internal medicine Hand [employer] - ICU Progress Note Patient was seen and examined this AM at bedside; Reported no chest pain overnight; stated palpitations and lightheadedness still present however not worsening. Did report some anxiety overnight Denied any syncopal event, sob, cough, abd pain, fevers chills, n/v/d/c, urinary complaints Remainder of 12 system ROS unremarkable 07/11/18 13:29 07/11/18 13:33 CCU Objective - Vital Signs / Intake & Output Vital Signs (Last 4 hours): Vital Signs Pulse BP 07/11/18 11:17 77 124/68 07/11/18 10:26 130/88 07/11/18 10:23 88 130/86 Intake and Output (Last 8hrs): Intake & Output 07/10/18 07/11/18 07/11/18 22:59 06:59 14:59 Intake Total 110 95 Output Total 800 Balance -690 95 Weight 83.143 kg Intake: IV 30 95 Right Antecubital 25 Oral 80 Output: Urine 800 Urine, Voided 800 Other: # Bowel Movements 0 - Physical Exam Head: Positive for: Atraumatic, Normocephalic Pupils: Positive for: PERRL Extroacular Muscles: Positive for: EOMI Conjunctiva: Positive for: Normal Mouth: Positive for: Moist Mucous Membranes Neck: Positive for: Normal Range of Motion Respiratory/Chest: Positive for: Clear to Auscultation, Good Air Exchange. Negative for: Respiratory Distress, Accessory Muscle Use, Wheezes, Decreased Breath Sounds, Rales, Rhonchi, Tachypneic Cardiovascular: Positive for: Irregular Rhythm, Tachycardic, Other (No murmurs) . Negative for: Murmurs Abdomen: Positive for: Hernias (umbilical ). Negative for: Tenderness, Distention, Rebound, Guarding Back: Positive for: Normal Inspection Upper Extremity: Positive for: Normal ROM Lower Extremity: Negative for: Edema Neurological: Positive for: GCS=15, CN II-XII Intact, Speech Normal Skin: Positive for: Warm, Dry, Normal Color. Negative for: Rashes Psychiatric: Positive for: Alert, Oriented x 3, Anxious - Medications Active Medications: Active Medications Generic Name Dose Route Start Last Admin Trade Name Freq PRN Reason Stop Dose Admin Allopurinol 300 mg 07/11/18 10:00 07/11/18 10:25 Zyloprim PO 300 mg DAILY CAR Administration Apixaban 2.5 mg 07/11/18 10:00 07/11/18 10:26 Eliquis PO 2.5 mg BID CAR Administration Protocol Aspirin 81 mg 07/11/18 10:00 07/11/18 10:23 Ecotrin PO 81 mg DAILY CAR Administration Atorvastatin Calcium 10 mg 07/11/18 22:00 Lipitor PO HS CAR Clonazepam 0.5 mg 07/11/18 10:00 07/11/18 10:23 Klonopin PO 0.5 mg BID CAR Administration Famotidine 10 mg 07/11/18 10:00 07/11/18 10:22 Pepcid PO 10 mg 1000,2200 CAR Administration Furosemide 40 mg 07/11/18 10:00 07/11/18 10:26 Lasix IVP 40 mg DAILY ACR Administration diltiaZEM IVPB 100mg in NS 100 mls @ 5 mls/hr 07/10/18 22:36 07/11/18 10:21 Cardizem 100mg In Ns IV 5 mg/hr .Q20H PRN 5 mls/hr TITRATE PER MD ORDER Administration Protocol 5 MG/HR Insulin Human Regular 0 units 07/11/18 11:30 07/11/18 11:32 Humulin R Low SC 1 unit ACHS CAR Administration Protocol Lisinopril 20 mg 07/11/18 10:00 07/11/18 10:23 Zestril PO 20 mg DAILY CAR Administration Sotalol HCl 40 mg 07/11/18 11:21 Betapace PO BID ON LICENSE OF [facility] Timolol Maleate 1 drop 07/11/18 10:00 07/11/18 11:34 Timoptic 0.5% Ophth Soln OU 1 drop BID CAR Administration - Patient Studies Lab Studies: Lab Studies 07/11/18 07/11/18 07/11/18 Range/Units 08:00 07:29 05:40 WBC (4.5-11.0) 10^3/ul RBC (3.5-6.1) 10^6/uL Hgb (12.0-16.0) g/dL Hct (36.0-48.0) % MCV (80.0-105.0) fl MCH (25.0-35.0) pg MCHC (31.0-37.0) g/dl RDW (11.5-14.5) % Plt Count (120.0-450.0) 10^3/uL MPV (7.0-11.0) fl Gran % (50.0-68.0) % Lymph % (Auto) (22.0-35.0) % Irwin % (Auto) (1.0-6.0) % Eos % (Auto) (1.5-5.0) % Baso % (Auto) (0.0-3.0) % Gran # (1.4-6.5) Lymph # (Auto) (1.2-3.4) Irwin # (Auto) (0.1-0.6) Eos # (Auto) (0.0-0.7) Baso # (Auto) (0.0-2.0) K/mm3 PT (9.4-12.5) SECONDS INR APTT 32.3 (25.1-36.5) Seconds Sodium 140 (132-148) mmol/L Potassium 3.7 (3.6-5.0) mmol/L Chloride 104 (98-107) mmol/L Carbon Dioxide 25 (21-33) mmol/L Anion Gap 15 (10-20) BUN 18 (7-21) mg/dL Creatinine 1.0 (0.7-1.2) mg/dl Est GFR ( Amer) > 60 Est GFR (Non-Af Amer) 54 POC Glucose (mg/dL) 136 H (65-110) mg/dL Random Glucose 142 H (70-110) mg/dL Calcium 9.4 (8.4-10.5) mg/dL Phosphorus 3.9 (2.5-4.5) mg/dL Magnesium 1.4 L (1.7-2.2) mg/dL Total Bilirubin 0.7 (0.2-1.3) mg/dL AST 27 (14-36) U/L ALT 22 (7-56) U/L Alkaline Phosphatase 80 (38-126) U/L Total Protein 7.1 (5.8-8.3) g/dL Albumin 4.2 (3.0-4.8) g/dL Globulin 2.8 gm/dL Albumin/Globulin Ratio 1.5 (1.1-1.8) 07/11/18 07/10/18 Range/Units 05:40 22:47 WBC 10.5 (4.5-11.0) 10^3/ul RBC 3.90 (3.5-6.1) 10^6/uL Hgb 12.4 (12.0-16.0) g/dL Hct 37.5 (36.0-48.0) % MCV 96.2 (80.0-105.0) fl MCH 31.8 (25.0-35.0) pg MCHC 33.1 (31.0-37.0) g/dl RDW 14.7 H (11.5-14.5) % Plt Count 270 (120.0-450.0) 10^3/uL MPV 9.8 (7.0-11.0) fl Gran % 76.4 H (50.0-68.0) % Lymph % (Auto) 16.9 L (22.0-35.0) % Irwin % (Auto) 6.3 H (1.0-6.0) % Eos % (Auto) 0.3 L (1.5-5.0) % Baso % (Auto) 0.1 (0.0-3.0) % Gran # 8.03 H (1.4-6.5) Lymph # (Auto) 1.8 (1.2-3.4) Irwin # (Auto) 0.7 H (0.1-0.6) Eos # (Auto) 0.0 (0.0-0.7) Baso # (Auto) 0.01 (0.0-2.0) K/mm3 PT 13.3 H (9.4-12.5) SECONDS INR 1.16 APTT 26.7 (25.1-36.5) Seconds Sodium (132-148) mmol/L Potassium (3.6-5.0) mmol/L Chloride (98-107) mmol/L Carbon Dioxide (21-33) mmol/L Anion Gap (10-20) BUN (7-21) mg/dL Creatinine (0.7-1.2) mg/dl Est GFR ( Amer) Est GFR (Non-Af Amer) POC Glucose (mg/dL) (65-110) mg/dL Random Glucose (70-110) mg/dL Calcium (8.4-10.5) mg/dL Phosphorus (2.5-4.5) mg/dL Magnesium (1.7-2.2) mg/dL Total Bilirubin (0.2-1.3) mg/dL AST (14-36) U/L ALT (7-56) U/L Alkaline Phosphatase (38-126) U/L Total Protein (5.8-8.3) g/dL Albumin (3.0-4.8) g/dL Globulin gm/dL Albumin/Globulin Ratio (1.1-1.8) Laboratory Results - last 24 hr 07/10/18 07/11/18 07/11/18 22:47 05:40 05:40 WBC 10.5 RBC 3.90 Hgb 12.4 Hct 37.5 MCV 96.2 MCH 31.8 MCHC 33.1 RDW 14.7 H Plt Count 270 MPV 9.8 Gran % 76.4 H Lymph % (Auto) 16.9 L Irwin % (Auto) 6.3 H Eos % (Auto) 0.3 L Baso % (Auto) 0.1 Gran # 8.03 H Lymph # (Auto) 1.8 Irwin # (Auto) 0.7 H Eos # (Auto) 0.0 Baso # (Auto) 0.01 PT 13.3 H INR 1.16 APTT 26.7 Sodium 140 Potassium 3.7 Chloride 104 Carbon Dioxide 25 Anion Gap 15 BUN 18 Creatinine 1.0 Est GFR ( Amer) > 60 Est GFR (Non-Af Amer) 54 POC Glucose (mg/dL) Random Glucose 142 H Calcium 9.4 Phosphorus 3.9 Magnesium 1.4 L Total Bilirubin 0.7 AST 27 ALT 22 Alkaline Phosphatase 80 Total Protein 7.1 Albumin 4.2 Globulin 2.8 Albumin/Globulin Ratio 1.5 07/11/18 07/11/18 07:29 08:00 WBC RBC Hgb Hct MCV MCH MCHC RDW Plt Count MPV Gran % Lymph % (Auto) Irwin % (Auto) Eos % (Auto) Baso % (Auto) Gran # Lymph # (Auto) Irwin # (Auto) Eos # (Auto) Baso # (Auto) PT INR APTT 32.3 Sodium Potassium Chloride Carbon Dioxide Anion Gap BUN Creatinine Est GFR ( Amer) Est GFR (Non-Af Amer) POC Glucose (mg/dL) 136 H Random Glucose Calcium Phosphorus Magnesium Total Bilirubin AST ALT Alkaline Phosphatase Total Protein Albumin Globulin Albumin/Globulin Ratio EKG/Cardiology Studies: Cardiology / EKG Studies 07/11/18 05:00 ELECTROCARDIOGRAM DAILY Comment: Reason For Exam: afib rvr Fingerstick Blood Sugar Results: 173 Review of Systems - Review of Systems All systems: reviewed and no additional remarkable complaints except Review of Systems: as per HPI Critical Care Progress Note - Nutrition Nutrition: Nutrition Category Date Time Status Heart Healthy Diet [DIET] Diets 07/11/18 Breakfast Active Assessment/Plan - Assessment and Plan (Free Text) Assessment: 77F [place] [facility] [place] w/ CC of lightheadedness + palpitations; found to be in AFib w/ RVR Neuro: - head ct shows no acute intracranial pathology - pt is AAOx3 - monitor for mental status changes Cardio: - EKG shows Afib at 132 with RVR - Cardizem 10mg IVP unsuccessful - C/w Cardizen Gtt; currently at 5mg/min - C/w home sotalol 40 BID - Start Digoxin 0.25 once today; C/w 0.125 Digoxin QD starting tmrrw - Remained normotensive; HD stable - maintain MAP>65mmHg - BNP is 2140; No clinical signs/features of CHF at this time - Continue home ASA, Atovastain, Lasix, Lisinopril - CHADVASC score is 4; continue eliquis as prescribed - cardiology consulted, recs appreciated Pulm: - Maintain spO2>95% - CXR no active airway disease - No rales/ crackles - Continue monitoring for signs of volume overload GI: - pepcid for GI ppx - HHD Renal: - replete electrolytes as needed - maintain euvolemia Endo: - hold home Metformin, Actos - Start ISS LOW ACHS - accucheck ACHS Heme: - H/H is stable - hgb is 11.5; baseline is 11.0 ID: - no leukocytosis; pt afebrile PPX: - GI: Pepcid - DVT: SCD Patient was seen examined and discussed w/ attending physician Dr. Violet Bermudez DO PGY1 Internal Medicine Hand [employer] - Pager [phone] DISPO: - Date & Time Date: 07/11/18 Time: 14:07 <Tez Lazo - Last Filed: 07/11/18 14:57> CCU Objective - Vital Signs / Intake & Output Vital Signs (Last 4 hours): Vital Signs Pulse BP 07/11/18 11:17 77 124/68 Intake and Output (Last 8hrs): Intake & Output 07/10/18 07/11/18 07/11/18 22:59 06:59 14:59 Intake Total 110 95 Output Total 800 Balance -690 95 Weight 183 lb 4.8 oz Intake: IV 30 95 Right Antecubital 25 Oral 80 Output: Urine 800 Urine, Voided 800 Other: # Bowel Movements 0 - Medications Active Medications: Active Medications Generic Name Dose Route Start Last Admin Trade Name Freq PRN Reason Stop Dose Admin Allopurinol 300 mg 07/11/18 10:00 07/11/18 10:25 Zyloprim PO 300 mg DAILY CAR Administration Apixaban 2.5 mg 07/11/18 10:00 07/11/18 10:26 Eliquis PO 2.5 mg BID CAR Administration Protocol Aspirin 81 mg 07/11/18 10:00 07/11/18 10:23 Ecotrin PO 81 mg DAILY CAR Administration Atorvastatin Calcium 10 mg 07/11/18 22:00 Lipitor PO HS CAR Clonazepam 0.5 mg 07/11/18 10:00 07/11/18 10:23 Klonopin PO 0.5 mg BID CAR Administration Digoxin 0.125 mg 07/12/18 14:00 Digoxin PO 1400 CAR Famotidine 10 mg 07/11/18 10:00 07/11/18 10:22 Pepcid PO 10 mg 1000,2200 CAR Administration diltiaZEM IVPB 100mg in NS 100 mls @ 5 mls/hr 07/10/18 22:36 07/11/18 10:21 Cardizem 100mg In Ns IV 5 mg/hr .Q20H PRN 5 mls/hr TITRATE PER MD ORDER Administration Protocol 5 MG/HR Insulin Human Regular 0 units 07/11/18 11:30 07/11/18 11:32 Humulin R Low SC 1 unit ACHS CAR Administration Protocol Lisinopril 10 mg 07/11/18 14:29 Zestril PO DAILY CAR Sotalol HCl 40 mg 07/11/18 11:21 Betapace PO BID CAR Timolol Maleate 1 drop 07/11/18 10:00 07/11/18 11:34 Timoptic 0.5% Ophth Soln OU 1 drop BID CAR Administration - Patient Studies Lab Studies: Lab Studies 07/11/18 07/11/18 07/11/18 Range/Units 08:00 07:29 05:40 WBC (4.5-11.0) 10^3/ul RBC (3.5-6.1) 10^6/uL Hgb (12.0-16.0) g/dL Hct (36.0-48.0) % MCV (80.0-105.0) fl MCH (25.0-35.0) pg MCHC (31.0-37.0) g/dl RDW (11.5-14.5) % Plt Count (120.0-450.0) 10^3/uL MPV (7.0-11.0) fl Gran % (50.0-68.0) % Lymph % (Auto) (22.0-35.0) % Irwin % (Auto) (1.0-6.0) % Eos % (Auto) (1.5-5.0) % Baso % (Auto) (0.0-3.0) % Gran # (1.4-6.5) Lymph # (Auto) (1.2-3.4) Irwin # (Auto) (0.1-0.6) Eos # (Auto) (0.0-0.7) Baso # (Auto) (0.0-2.0) K/mm3 PT (9.4-12.5) SECONDS INR APTT 32.3 (25.1-36.5) Seconds Sodium 140 (132-148) mmol/L Potassium 3.7 (3.6-5.0) mmol/L Chloride 104 (98-107) mmol/L Carbon Dioxide 25 (21-33) mmol/L Anion Gap 15 (10-20) BUN 18 (7-21) mg/dL Creatinine 1.0 (0.7-1.2) mg/dl Est GFR ( Amer) > 60 Est GFR (Non-Af Amer) 54 POC Glucose (mg/dL) 136 H (65-110) mg/dL Random Glucose 142 H (70-110) mg/dL Calcium 9.4 (8.4-10.5) mg/dL Phosphorus 3.9 (2.5-4.5) mg/dL Magnesium 1.4 L (1.7-2.2) mg/dL Total Bilirubin 0.7 (0.2-1.3) mg/dL AST 27 (14-36) U/L ALT 22 (7-56) U/L Alkaline Phosphatase 80 (38-126) U/L Total Protein 7.1 (5.8-8.3) g/dL Albumin 4.2 (3.0-4.8) g/dL Globulin 2.8 gm/dL Albumin/Globulin Ratio 1.5 (1.1-1.8) 07/11/18 07/10/18 Range/Units 05:40 22:47 WBC 10.5 (4.5-11.0) 10^3/ul RBC 3.90 (3.5-6.1) 10^6/uL Hgb 12.4 (12.0-16.0) g/dL Hct 37.5 (36.0-48.0) % MCV 96.2 (80.0-105.0) fl MCH 31.8 (25.0-35.0) pg MCHC 33.1 (31.0-37.0) g/dl RDW 14.7 H (11.5-14.5) % Plt Count 270 (120.0-450.0) 10^3/uL MPV 9.8 (7.0-11.0) fl Gran % 76.4 H (50.0-68.0) % Lymph % (Auto) 16.9 L (22.0-35.0) % Irwin % (Auto) 6.3 H (1.0-6.0) % Eos % (Auto) 0.3 L (1.5-5.0) % Baso % (Auto) 0.1 (0.0-3.0) % Gran # 8.03 H (1.4-6.5) Lymph # (Auto) 1.8 (1.2-3.4) Irwin # (Auto) 0.7 H (0.1-0.6) Eos # (Auto) 0.0 (0.0-0.7) Baso # (Auto) 0.01 (0.0-2.0) K/mm3 PT 13.3 H (9.4-12.5) SECONDS INR 1.16 APTT 26.7 (25.1-36.5) Seconds Sodium (132-148) mmol/L Potassium (3.6-5.0) mmol/L Chloride (98-107) mmol/L Carbon Dioxide (21-33) mmol/L Anion Gap (10-20) BUN (7-21) mg/dL Creatinine (0.7-1.2) mg/dl Est GFR ( Amer) Est GFR (Non-Af Amer) POC Glucose (mg/dL) (65-110) mg/dL Random Glucose (70-110) mg/dL Calcium (8.4-10.5) mg/dL Phosphorus (2.5-4.5) mg/dL Magnesium (1.7-2.2) mg/dL Total Bilirubin (0.2-1.3) mg/dL AST (14-36) U/L ALT (7-56) U/L Alkaline Phosphatase (38-126) U/L Total Protein (5.8-8.3) g/dL Albumin (3.0-4.8) g/dL Globulin gm/dL Albumin/Globulin Ratio (1.1-1.8) Laboratory Results - last 24 hr 07/10/18 07/11/18 07/11/18 22:47 05:40 05:40 WBC 10.5 RBC 3.90 Hgb 12.4 Hct 37.5 MCV 96.2 MCH 31.8 MCHC 33.1 RDW 14.7 H Plt Count 270 MPV 9.8 Gran % 76.4 H Lymph % (Auto) 16.9 L Irwin % (Auto) 6.3 H Eos % (Auto) 0.3 L Baso % (Auto) 0.1 Gran # 8.03 H Lymph # (Auto) 1.8 Irwin # (Auto) 0.7 H Eos # (Auto) 0.0 Baso # (Auto) 0.01 PT 13.3 H INR 1.16 APTT 26.7 Sodium 140 Potassium 3.7 Chloride 104 Carbon Dioxide 25 Anion Gap 15 BUN 18 Creatinine 1.0 Est GFR ( Amer) > 60 Est GFR (Non-Af Amer) 54 POC Glucose (mg/dL) Random Glucose 142 H Calcium 9.4 Phosphorus 3.9 Magnesium 1.4 L Total Bilirubin 0.7 AST 27 ALT 22 Alkaline Phosphatase 80 Total Protein 7.1 Albumin 4.2 Globulin 2.8 Albumin/Globulin Ratio 1.5 07/11/18 07/11/18 07:29 08:00 WBC RBC Hgb Hct MCV MCH MCHC RDW Plt Count MPV Gran % Lymph % (Auto) Irwin % (Auto) Eos % (Auto) Baso % (Auto) Gran # Lymph # (Auto) Irwin # (Auto) Eos # (Auto) Baso # (Auto) PT INR APTT 32.3 Sodium Potassium Chloride Carbon Dioxide Anion Gap BUN Creatinine Est GFR ( Amer) Est GFR (Non-Af Amer) POC Glucose (mg/dL) 136 H Random Glucose Calcium Phosphorus Magnesium Total Bilirubin AST ALT Alkaline Phosphatase Total Protein Albumin Globulin Albumin/Globulin Ratio EKG/Cardiology Studies: Cardiology / EKG Studies 07/11/18 05:00 ELECTROCARDIOGRAM DAILY Comment: Reason For Exam: afib rvr Critical Care Progress Note - Nutrition Nutrition: Nutrition Category Date Time Status Heart Healthy Diet [DIET] Diets 07/11/18 Breakfast Active Addendum Addendum: 07/11/18 14:55 ICU Attending Addendum: Patient seen and examined. Case reviewed on round with housestaff. Agree with resident note above with the following additions/exceptions: 77 year old female with PMH of Afib (on eliquis), HTN, CHF, DM2 admitted with afib RVR no signs of ACS does not appear septic rate controlled with cardizem drip resume home BB, titrate off crdizem drip cont eliquis for afib f/u cards rec Rest of care as noted above. Tez Lazo MD [employer]
--- NOTE | 2018-07-11 13:58 | CARD ---
APPROVED REPORT Date of service: 07/10/2018 EKG Measurement Heart [id number] <Conclusion> Atrial fibrillation with rapid ventricular response Left axis deviation Incomplete left bundle branch block Minimal voltage criteria for LVH, may be normal variant ST & T wave abnormality, consider lateral ischemia or digitalis effect Abnormal ECG
[2018-07-11] MEDS ORDERED: Digoxin 250 mcg (0.25 mg) Tab PO ONE (14:00)
--- NOTE | 2018-07-11 14:51 | CON ---
DATE: 07/11/2018 CARDIOLOGY CONSULTATION HISTORY: The patient is a 77-year-old woman, who presented with what she describes as a funny feeling and dizziness. She was found to have marked tachycardia from her chronic atrial fibrillation. She denies chest pain, denies shortness of breath. The patient's past medical history includes a history of chronic atrial fibrillation, treated with Eliquis as well as sotalol. In addition, she suffers from hypertension as well as diabetes mellitus and hypercholesterolemia. Her cardiac evaluation included cardiac catheterization, which was performed in 04/2018 where she was found to have good LV function with two borderline critical lesions of 50-60% stenosis in the circumflex artery and a 60% stenosis in the distal portion of the posterolateral branch. Her coronary arteries were treated medically. SOCIAL HISTORY: The patient does not smoke. REVIEW OF SYSTEMS: Fourteen-point review of systems is reviewed in detail. Other than this funny feeling that she describes, there is no other cardiac symptomatology noted. PHYSICAL EXAMINATION: VITAL SIGNS: The blood pressure is 124/68, the heart rate is atrial fibrillation in the 70s. NECK: Negative JVD. LUNGS: Without rales. HEART: Reveals S1, S2. EXTREMITIES: Without edema. LABORATORY DATA: EKG shows atrial fibrillation with nonspecific ST-T changes. Hemoglobin is 12.4. Chemistries: BUN and creatinine are unremarkable. The glucose is 142. Troponins are negative. ProBNP is 2140. IMPRESSION: 1. Chronic atrial fibrillation with marked increased heart rate. 2. Dizziness and borderline hypotension with 80 mg of sotalol b.i.d. This was decreased to 40, which resulted in a fast heart rate. 3. Borderline critical coronary artery disease. 4. Normal left ventricular function. 5. Diabetes mellitus. 6. Hypertension. 7. Hypercholesterolemia. PLAN: Given these findings, we will need to manage her medications in the following fashion. We will continue her Eliquis of 2.5 b.i.d. given her chronic atrial fibrillation. A baby aspirin has been ordered for her borderline critical lesions. We will add digoxin 0.125 to her regimen. We will continue the Betapace at 40 b.i.d. We will stop her Lasix given that there is no evidence of CHF. The patient can be transferred to telemetry today. She is off of her IV Cardizem. David Washburn MD [facility] # [id number]
[2018-07-12] MEDS: Insulin Reg-LOW-Coverage SC SCH ×2 (08:04→13:55)
[2018-07-12 08:46] LABS: BASO # 0.02 K/mm3 (0.0-2.0); BASO % 0.2 % (0.0-3.0); EOS # 0.1 (0.0-0.7); EOS % 0.8 % (1.5-5.0); GRAN # 5.67 (1.4-6.5); GRAN % 66.4 % (50.0-68.0); HEMOGLOBIN 12.1 g/dL (12.0-16.0); LYMPH # 2.2 (1.2-3.4); LYMPH % 25.7 % (22.0-35.0); MEAN CELL VOLUME 95.8 fl (80.0-105.0); MEAN CORPUSCULAR HEMOGLOBIN 32.1 pg (25.0-35.0); MEAN CORPUSCULAR HGB CONC 33.5 g/dl (31.0-37.0); MEAN PLATELET VOLUME 9.5 fl (7.0-11.0); MONO # 0.6 (0.1-0.6); MONO % 6.9 % (1.0-6.0); RBC 3.77 10^6/uL (3.5-6.1); RED CELL DISTRIBUTION WIDTH 14.5 % (11.5-14.5); WHITE BLOOD COUNT 8.6 10^3/ul (4.5-11.0)
[2018-07-12 08:47] VITALS: RESP 9; TEMP 98.4; O2SAT 95
[2018-07-12] MEDS ORDERED: Digoxin 250 mcg (0.25 mg) Tab PO ONE (09:04)
[2018-07-12 09:19] LABS: ALB/GLOB RATIO 1.5 (1.1-1.8); ALBUMIN 3.9 g/dL (3.0-4.8)
--- NOTE | 2018-07-12 09:40 | PN ---
DATE: 07/12/2018 CARDIOLOGY FOLLOWUP SUBJECTIVE: The patient is feeling well, ambulating without symptoms. PHYSICAL EXAMINATION: VITAL SIGNS: Blood pressure 120/60, heart rate is atrial fibrillation, approximately 100. NECK: Negative JVD. LUNGS: Without rales. HEART: Reveal S1, S2. EXTREMITIES: Without edema. LABORATORY DATA: Hemoglobin is 12.1, glucose is 115. IMPRESSION: 1. Atrial fibrillation. 2. Intolerance to normal doses of sotalol. 3. Dizziness, which is resolved. 4. Borderline critical coronary artery disease. 5. Normal left ventricular function. 6. Diabetes mellitus. 7. Hypertension. Given these findings, we will control the patient's heart rate with a combination of sotalol 40 b.i.d. We will add digoxin to her regimen. In addition, we will give an extra dose of digoxin today. From a cardiac perspective, the patient can be discharged. She has agreed to follow up with me, to see me in the office next week to monitor her heart rate. David Washburn MD
[2018-07-12 10:04] VITALS: BP 116/68; PULSE 117
[2018-07-12 13:58] VITALS: PULSE 1
[2018-07-12] MEDS ORDERED: Digoxin 125 mcg (0.125 mg) Tab PO SCH (14:00)
--- NOTE | 2018-07-12 23:09 | DS ---
HISTORY OF PRESENT ILLNESS: She is in the Intensive Care Unit right now. She came in for rapid atrial fibrillation. She had a Cardizem drip. I discussed it with Dr. Washburn this morning. She is now on Betapace 40 b.i.d. She is on digoxin 0.25 one daily, aspirin, Eliquis 2.5 twice a day, Klonopin 0.5 b.i.d. She has Lipitor [address] Washburn want her to stop the Pepcid. She is going to stop the Zestril. She will be on Zyloprim 300 mg daily. We are going to get Physical Therapy to walk her. PHYSICAL EXAMINATION: VITAL SIGNS: She has a 98.4 temperature, 103 pulse, 19 respiratory rate, 120/59 blood pressure, 95% O2 saturation. HEENT: Head is atraumatic, normocephalic. HEART: Regular rate. LUNGS: Clear to auscultation. ABDOMEN: Soft, nontender. Positive bowel sounds. EXTREMITIES: No edema. LABORATORY DATA: She has 8.6 white count, 12.1 hemoglobin, 36.1 hematocrit with 230 platelets. She has a 140 sodium, potassium 3.7, BUN 18, creatinine 1, GFR is 54, blood sugar is 115, calcium is 9.4, phosphorous is 3.9, magnesium 1.4, total bili is 0.7, AST is 27, ALT is 22, alk phos 80. Total protein 7.1 and the urine is small. ASSESSMENT AND PLAN: So, we are going to discharge her today. She will go home on those medications I listed. She will have the Pharmacy call me. I want Physical Therapy to see her and may be after lunch if she walks well, she will be discharged today to home. She is here for rapid atrial fibrillation. Jose Alberto Hopkins DO
== END 2018-07-12 17:06 | disposition home or self-care (01) | DRG 310 ==
LOC: ED 17:34 → ERH 22:43 → ICU 07-11 03:16
PROVIDERS: ADMIT Family Medicine; ATTEND Family Medicine
DX: I48.2 Chronic atrial fibrillation (principal); R42 Dizziness and giddiness; Z79.84 Long term (current) use of oral hypoglycemic drugs; Z79.01 Long term (current) use of anticoagulants; Z79.82 Long term (current) use of aspirin; E11.9 Type 2 diabetes mellitus without complications; R00.0 Tachycardia, unspecified; M19.90 Unspecified osteoarthritis, unspecified site; F41.9 Anxiety disorder, unspecified; I25.10 Atherosclerotic heart disease of native coronary artery without angina pectoris; I95.9 Hypotension, unspecified; E78.00 Pure hypercholesterolemia, unspecified; I11.0 Hypertensive heart disease with heart failure; I27.20 Pulmonary hypertension, unspecified; I50.9 Heart failure, unspecified; Z79.899 Other long term (current) drug therapy; Z82.49 Family history of ischemic heart disease and other diseases of the circulatory system

== ENCOUNTER 2018-12-21 11:06 | Outpatient (CLI) | payer MEDICARE | END 2018-12-21 11:07 | disposition home or self-care (01) | LOC: RAD 11:06 ==